=== PATIENT | female | born 1990 | race Two or more races ===

== ENCOUNTER 2019-07-09 16:32 | Emergency (ER) | payer MEDICAID ==
[~2019-07-09] VITALS: Ht 157.5 cm; Wt 55.0 kg
[2019-07-09] MEDS ORDERED: ACETAMINOPHEN 325MG TABLET PO ONE (18:00)
[2019-07-09 18:21] VITALS: BP 112/78
== END 2019-07-09 18:22 | disposition home or self-care (01) ==
LOC: ER 16:32
DX: J02.8 Acute pharyngitis due to other specified organisms (principal)
CPT/HCPCS: 99282